=== PATIENT | female | born 1985 | race Caucasian/White ===

== ENCOUNTER 2019-07-05 10:43 | Emergency (ER) | payer BC ==
[~2019-07-05] VITALS: Ht 162.6 cm; Wt 68.2 kg
[2019-07-05] MEDS ORDERED: cefTRIAXone IV Push 1 GM VIAL. IVP STA (11:02)
[2019-07-05] MEDS ORDERED: MORPHINE SULFATE 10 MG/ML VIAL. IV STA (11:02)
--- NOTE | 2019-07-05 11:09 | PHYS DOC ---
Adult General Chief Complaint Chief Complaint: FLANK PAIN HPI HPI Patient is a 34 year old female who presents with left flank pain and fever that started 4-5 days ago. This morning when she woke up her temperature was 1 02.8F. The patient went to see an outpatient doctor and was prescribed Cipro and took one dose of it before arrival, she had an order for an outpatient CT scan but decided to check in the ER as she was not feeling well. She also had a dose of Toradol, unknown dosage. She rates her pain currently as 5 out of 10 in severity. The patient also has associated symptoms of nausea. She denies any medical history and states she does not have any allergies to any medicines. Review of Systems Review of Systems Constitutional: Reports fever or chills [] Eyes: Denies change in visual acuity, redness, or eye pain [] HENT: Denies nasal congestion or sore throat [] Respiratory: Denies cough or shortness of breath [] Cardiovascular: No additional information not addressed in HPI [] GI: Reports abdominal pain, nausea, denies vomiting, bloody stools or diarrhea [] : Denies dysuria or hematuria [] Musculoskeletal: Reports back pain. Integument: Denies rash or skin lesions [] Neurologic: Denies headache, focal weakness or sensory changes [] Endocrine: Denies polyuria or polydipsia [] Complete systems were reviewed and found to be within normal limits, except as documented in this note. Current Medications Current Medications Current Medications Medications (Trade) Dose Ordered Sig/Iris Start Time Stop Time Status Last Admin Dose Admin Ceftriaxone Sodium (Rocephin) 1 gm 1X STAT 07/05/19 11:02 07/05/19 11:41 DC 07/05/19 12:01 1 GM Morphine Sulfate (Morphine Sulfate) 5 mg 1X STAT 07/05/19 11:02 07/05/19 11:41 DC 07/05/19 12:02 5 MG Sodium Chloride 1,000 ml @ 1,000 mls/hr 1X ONCE 07/05/19 11:15 07/05/19 12:14 DC 07/05/19 12:02 1,000 MLS/HR Allergies Allergies Allergies Coded Allergies Type Severity Reaction Last Updated Verified No Known Drug Allergies 07/05/19 No Physical Exam Physical Exam Constitutional: Well developed, well nourished, no acute distress, non-toxic appearance. [] HENT: Normocephalic, atraumatic, bilateral external ears normal, oropharynx moist, no oral exudates, nose normal. [] Eyes: PERRLA, EOMI, conjunctiva normal, no discharge. [] Neck: Normal range of motion, no tenderness, supple, no stridor. [] Cardiovascular:Heart rate regular rhythm, no murmur [] Lungs & Thorax: Bilateral breath sounds clear to auscultation [] Abdomen: Bowel sounds normal, soft, LUQ tenderness, L flank tenderness, no masses, no pulsatile masses. [] Skin: Warm, dry, no erythema, no rash. [] Back: L CVA tenderness. [] Neurologic: Alert and oriented X 3, GCS 15, normal motor function, normal sensory function, no focal deficits noted. [] Current Patient Data Vital Signs Vital Signs Date Time Temp Pulse Resp B/P (MAP) Pulse Ox O2 Delivery O2 Flow Rate FiO2 07/05/19 12:02 98 Room Air 07/05/19 11:56 80 136/62 (86) 07/05/19 10:52 99.5 17 99.5 Lab Values Laboratory Tests Test 07/05/19 11:00 07/05/19 11:25 07/05/19 11:35 Urine Collection Type Void Urine Color Yellow Urine Clarity Cloudy Urine pH 6.5 Urine Specific [place] 1.020 Urine Protein 100 mg/dL (NEG-TRACE) Urine Glucose (UA) Negative mg/dL (NEG) Urine Ketones (Stick) 15 mg/dL (NEG) Urine Blood Small (NEG) Urine Nitrite Positive (NEG) Urine Bilirubin Negative (NEG) Urine Urobilinogen Dipstick 1.0 mg/dL (0.2 mg/dL) Urine Leukocyte Esterase Large (NEG) Urine RBC Field obscured /HPF (0-2) Urine WBC Tntc /HPF (0-4) Urine Squamous Epithelial Cells Occ /LPF Urine Bacteria Moderate /HPF (0-FEW) White Blood Count 10.7 x10^3/uL (4.0-11.0) Red Blood Count 3.78 x10^6/uL (3.50-5.40) Hemoglobin 12.7 g/dL (12.0-15.5) Hematocrit 36.3 % (36.0-47.0) Mean Corpuscular Volume 96 fL (79-100) Mean Corpuscular Hemoglobin 34 pg (25-35) Mean Corpuscular Hemoglobin Concent 35 g/dL (31-37) Red Cell Distribution Width 12.5 % (11.5-14.5) Platelet Count 193 x10^3/uL (140-400) Neutrophils (%) (Auto) 89 % (31-73) H Lymphocytes (%) (Auto) 5 % (24-48) L Monocytes (%) (Auto) 6 % (0-9) Eosinophils (%) (Auto) 0 % (0-3) Basophils (%) (Auto) 0 % (0-3) Neutrophils # (Auto) 9.5 x10^3/uL (1.8-7.7) H Lymphocytes # (Auto) 0.5 x10^3/uL (1.0-4.8) L Monocytes # (Auto) 0.6 x10^3/uL (0.0-1.1) Eosinophils # (Auto) 0.0 x10^3/uL (0.0-0.7) Basophils # (Auto) 0.0 x10^3/uL (0.0-0.2) Sodium Level 141 mmol/L (136-145) Potassium Level 3.6 mmol/L (3.5-5.1) Chloride Level 104 mmol/L (98-107) Carbon Dioxide Level 22 mmol/L (21-32) Anion Gap 15 (6-14) H Blood Urea Nitrogen 9 mg/dL (7-20) Creatinine 0.7 mg/dL (0.6-1.0) Estimated GFR (Cockcroft-Gault) 95.2 BUN/Creatinine Ratio 13 (6-20) Glucose Level 91 mg/dL (70-99) Lactic Acid Level 0.9 mmol/L (0.4-2.0) Calcium Level 8.6 mg/dL (8.5-10.1) Magnesium Level 1.7 mg/dL (1.8-2.4) L Total Bilirubin 0.8 mg/dL (0.2-1.0) Aspartate Amino Transferase (AST) 11 U/L (15-37) L Alanine Aminotransferase (ALT) 16 U/L (14-59) Alkaline Phosphatase 84 U/L (46-116) Total Protein 6.6 g/dL (6.4-8.2) Albumin 3.8 g/dL (3.4-5.0) Albumin/Globulin Ratio 1.4 (1.0-1.7) Lipase 88 U/L (73-393) POC Urine HCG, Qualitative Hcg negative (Negative) Laboratory Tests 07/05/19 11:25 Laboratory Tests 07/05/19 11:25 EKG EKG EKG interpreted by Dr. Germaine Mari with rate of 79. Radiology/Procedures Radiology/Procedures [][facility] [address] [place] [address] IMAGING REPORT Signed PATIENT: ELLE LOCKE ACCOUNT: [id number] : 1985 LOCATION: ER AGE: 34 SEX: F EXAM STATUS: REG ER ORD. PHYSICIAN: MELVIN ARZATE APRN REASON: L Flank Pain PROCEDURE: CT ABDOMEN PELVIS WO CONTRAST CT ABDOMEN PELVIS WO CONTRAST History: Left flank pain. Technique: Noncontrast examination of the abdomen and pelvis. Coronal and sagittal reconstructions were performed. Exposure: One or more of the following individualized dose reduction techniques were utilized for this examination: 1. Automated exposure control 2. Adjustment of the mA and/or kV according to patient size 3. Use of iterative reconstruction technique. Comparison: None Findings: Lower chest: No consolidation or pleural effusion. Abdomen and pelvis: The liver, spleen, adrenal glands, pancreas and gallbladder are unremarkable. Mild left pelvocaliectasis. Left perinephric and periureteral fat stranding. Left distal ureteral evaluation is degraded due to adjacent structures and decompressed urinary bladder. Possible left distal ureteral 2 mm calculus. Multiple left-sided phleboliths. Punctate nonobstructing right renal calculus. No right hydronephrosis. Normal appendix. No evidence of bowel obstruction. No pathologic lymphadenopathy. No ascites. Otherwise pelvic contents are unremarkable. Bones: No pathologic osseous lesions. Impression: 1. Mild left pelvocaliectasis with perinephric/periureteral fat stranding. Possible left distal ureteral 2 mm calculus although evaluation is degraded. Recommend correlation for infection. Electronically signed by: Deepak Ventura DO (07/05/2019 12:29 PM) [id number] Course & Med Decision Making Course & Med Decision Making Pertinent Labs and Imaging studies reviewed. (See chart for details) Will get labs, UA, CT scan, test and give supportive care. Will also go ahead and give 1 G of Rocephin. Urine shows positive nitrate, small blood, and moderate leukocytes. Labs are unremarkable. Impression: 1. Mild left pelvocaliectasis with perinephric/periureteral fat stranding. Possible left distal ureteral 2 mm calculus although evaluation is degraded. Recommend correlation for infection. Electronically signed by: Deepak Ventura DO (07/05/2019 12:29 PM) [id number] Discussed with the patient that she has an infected kidney stone and I recommend admission at a hospital that has a urologist. The patient does not want be admitted that she does not want to miss work. The patient asked if she could try to get better outpatient. The patient although I recommend admission to the hospital if she does not want to be admitted I will try to prescribe her antibiotics, nausea medicine, pain medicine and see if she gets better outpatient. The patient has follow-up with a urologist and will follow-up in a week. The patient agreed to come back to the hospital if this gets worse to be admitted. Dragon Disclaimer Dragon Disclaimer This electronic medical record was generated, in whole or in part, using a voice recognition dictation system. Departure Departure Impression: Primary Impression: Pelvicaliectasis Additional Impressions: Left nephrolithiasis Pyelonephritis Disposition: 01 HOME, SELF-CARE Condition: STABLE Referrals: NO PCP (PCP) Patient Instructions: Kidney Stones, Pyelonephritis, Adult Additional Instructions: Thank you for visiting [facility]. We appreciate you trusting us with your care. If any additional problems come up don't hesitate to return to visit us. Please follow up with your primary care provider so they can plan additional care if needed and know about the problem that you had. If symptoms worsen come back to the Emergency Department. Any concerning symptoms that start such as chest pain, shortness of air, weakness or numbness on one side of the body, running high fevers or any other concerning symptoms return to the ER. You have been prescribed an antibiotic today to help fight your infection. Please take all of the antibiotic as directed. If after 48 hours the infection is not improving, please return for more care. If the infection worsens, return to ER for additional care. Please return to the hospital if this gets worse or is not improving. Scripts Ondansetron (ONDANSETRON ODT) 4 Mg Tab.rapdis 1 TAB PO PRN Q6-8HRS PRN for NAUSEA, #20 TAB Prov: MELVIN ARZATE APRN 07/05/19 Hydrocodone/Apap 5-325 (NORCO 5-325 TABLET) 1 Each Tablet 1 TAB PO PRN Q6HRS PRN for PAIN for 3 Days, #10 TAB 0 Refills Prov: MELVIN ARZATE APRN 07/05/19 Cephalexin (KEFLEX) 500 Mg Capsule 1 CAP PO QID for 14 Days, #56 CAP 0 Refills Prov: MELVIN ARZATE APRN 07/05/19 Problem Qualifiers MELVIN ARZATE APRN Jul 05, 2019 11:09
[2019-07-05] MEDS ORDERED: IV NORMAL SALINE 1000ML BAG 1,000 ML IV ONE (11:15)
[2019-07-05 11:42] LABS: BASO % 0 % (0-3); EOS % 0 % (0-3); HEMATOCRIT 36.3 % (36.0-47.0); HEMOGLOBIN 12.7 g/dL (12.0-15.5); LYMPH # 0.5 x10^3/uL (1.0-4.8); LYMPH % 5 % (24-48); MEAN CORPUSCULAR HEMOGLOBIN 34 pg (25-35); MEAN CORPUSCULAR HGB CONC 35 g/dL (31-37); MEAN CORPUSCULAR VOLUME 96 fL (79-100); MONO # 0.6 x10^3/uL (0.0-1.1); MONO % 6 % (0-9); NEUT # 9.5 x10^3/uL (1.8-7.7); NEUT % 89 % (31-73); PLATELET COUNT 193 x10^3/uL (140-400); RED BLOOD COUNT 3.78 x10^6/uL (3.50-5.40); RED CELL DISTRIBUTION WIDTH 12.5 % (11.5-14.5); WHITE BLOOD COUNT 10.7 x10^3/uL (4.0-11.0)
[2019-07-05 11:44] LABS: BILIRUBIN,URINE NEGATIVE (NEG); CLARITY,URINE CLOUDY; COLOR,URINE YELLOW; NITRITE,URINE POSITIVE (NEG); PH,URINE 6.5; PROTEIN,URINE 100 mg/dL (NEG-TRACE)
[2019-07-05 11:58] LABS: CALCIUM 8.6 mg/dL (8.5-10.1); CREATININE 0.7 mg/dL (0.6-1.0); GFR 95.2; POTASSIUM 3.6 mmol/L (3.5-5.1)
[2019-07-05 12:04] LABS: ALBUMIN 3.8 g/dL (3.4-5.0); ALBUMIN/GLOBULIN RATIO 1.4 (1.0-1.7); MAGNESIUM 1.7 mg/dL (1.8-2.4); TOTAL BILIRUBIN 0.8 mg/dL (0.2-1.0); TOTAL PROTEIN 6.6 g/dL (6.4-8.2)
[2019-07-05 12:07] LABS: BACTERIA,URINE MODERATE /HPF (0-FEW); SQUAMOUS EPITHELIAL CELL,UR OCC /LPF; WBC,URINE TNTC /HPF (0-4)
[2019-07-05 12:08] LABS: RBC,URINE FIELD OBSCURED /HPF (0-2)
--- NOTE | 2019-07-05 12:27 | EKG ---
[facility] [address] [place] [address] Test Date: 2019-07-05 Test Time: 11:46:31 Pat Name: ELLE LOCKE Department: Room: Gender: F Director Of Rooms: : 1985 Requested By: MELVIN ARZATE Order Number: [id number] Reading MD: Measurements Intervals Odell Rate: 79 P: 42 OK: 148 QRS: 28 QRSD: 76 T: 4 QT: 338 QTc: 393 Interpretive Statements SINUS RHYTHM QRS(T) CONTOUR ABNORMALITY CONSISTENT WITH ANTEROSEPTAL INFARCT AGE UNDETERMINED ABNORMAL ECG No previous ECG available for comparison
--- NOTE | 2019-07-05 12:32 | RAD ---
CT ABDOMEN PELVIS WO CONTRAST History: Left flank pain. Technique: Noncontrast examination of the abdomen and pelvis. Coronal and sagittal reconstructions were performed. Exposure: One or more of the following individualized dose reduction techniques were utilized for this examination: 1. Automated exposure control 2. Adjustment of the mA and/or kV according to patient size 3. Use of iterative reconstruction technique. Comparison: None Findings: Lower chest: No consolidation or pleural effusion. Abdomen and pelvis: The liver, spleen, adrenal glands, pancreas and gallbladder are unremarkable. Mild left pelvocaliectasis. Left perinephric and periureteral fat stranding. Left distal ureteral evaluation is degraded due to adjacent structures and decompressed urinary bladder. Possible left distal ureteral 2 mm calculus. Multiple left-sided phleboliths. Punctate nonobstructing right renal calculus. No right hydronephrosis. Normal appendix. No evidence of bowel obstruction. No pathologic lymphadenopathy. No ascites. Otherwise pelvic contents are unremarkable. Bones: No pathologic osseous lesions. Impression: 1. Mild left pelvocaliectasis with perinephric/periureteral fat stranding. Possible left distal ureteral 2 mm calculus although evaluation is degraded. Recommend correlation for infection. Electronically signed by: Deepak Ventura DO (07/05/2019 12:29 PM) [id number]
[2019-07-05 13:26] VITALS: BP 131/69
[2019-07-05] MEDS ORDERED: ONDA4TAB12 PO (13:40)
[2019-07-05] MEDS ORDERED: CEPH-264 PO (13:40)
[2019-07-05] MEDS ORDERED: HYDR-3164 PO (13:40)
== END 2019-07-05 14:02 | disposition home or self-care (01) ==
LOC: ER 10:43
DX: N13.2 Hydronephrosis with renal and ureteral calculous obstruction (principal); N10 Acute pyelonephritis; R10.12 Left upper quadrant pain; R50.9 Fever, unspecified; R11.0 Nausea
CPT/HCPCS: 36415; 74176; 80053; 81001; 81025; 83605; 83690; 83735; 85025; 87040; 87086; 93005; 96374; 96375; 99285; J0696; J2270; J7030

== ENCOUNTER 2021-05-12 22:50 | Emergency (ER) | payer BC ==
[~2021-05-12] VITALS: Ht 160 cm; Wt 63.5 kg
[~2021-05-12 22:50] MED LIST: CEPH-264 PO; HYDR-3164 PO; ONDA4TAB12 PO
--- NOTE | 2021-05-13 00:42 | PHYS DOC ---
Past Medical History Past Medical History: No Pertinent History Past Surgical History: No Surgical History Smoking Status: Never Smoker Alcohol Use: Occasionally General Adult EDM: Chief Complaint: ABDOMINAL PAIN HPI: HPI: Patient is a 35 year old female who presents with nausea and vomiting, right- sided flank pain, radiating down to her right lower quadrant. She was diagnosed with a gallstone a few weeks ago, as she had an outpatient ultrasound at [facility]. The ultrasound was reportedly ordered by her pharmacy innovation assistant, and she had outpatient labs, the results of which she does not know. Her pharmacy innovation assistant and referred her to see Dr. Gonzales, with whom she has an appointment later today. She ate [employer] for dinner. She reports that she was not counseled on any dietary modifications or what to do about gallstones in general. She reports that last night she developed a fever of 100.1. She took ibuprofen several hours ago. She has not taken any Tylenol today. She has not been taking any prescription medications for pain or nausea at home. She denies constipation or diarrhea. She denies any hematuria, she reports mild urinary urgency but denies dysuria. She denies pelvic pain, vaginal discharge or bleeding. She reports she has "no idea" when her last menstrual period was. She is taking control. She has had previous C-sections. No other abdominal surgeries reported. Review of Systems: Review of Systems: Constitutional: Fever began tonight. Denies chills or myalgias. Eyes: Denies change in visual acuity. [] HENT: Denies nasal congestion or sore throat. [] Respiratory: Denies cough or shortness of breath. [] Cardiovascular: Denies chest pain or edema. [] GI: Right upper quadrant abdominal pain, right flank pain, nausea and vomiting. Denies constipation or diarrhea, denies melena or hematochezia. : Denies dysuria or gross hematuria. Reports urinary urgency. Denies pelvic pain, vaginal discharge or bleeding Musculoskeletal: Right flank pain, rating from her right abdomen, denies low back pain, denies joint pain or swelling Integument: Denies rash. [] Neurologic: Denies headache, focal weakness or sensory changes. [] Psychiatric: Denies depression or anxiety. [] Heart Score: C/O Chest Pain: No Risk Factors: Risk Factors: DM, Current or recent (<one month) smoker, HTN, HLP, family history of CAD, obesity. Risk Scores: Score 0 - 3: 2.5% MACE over next 6 weeks - Discharge Home Score 4 - 6: 20.3% MACE over next 6 weeks - Admit for Clinical Observation Score 7 - 10: 72.7% MACE over next 6 weeks - Early Invasive Strategies Allergies: Allergies: Allergies Coded Allergies Type Severity Reaction Last Updated Verified No Known Drug Allergies 07/05/19 No Physical Exam: PE: Constitutional: Well developed, well nourished, no acute distress, non-toxic appearance. [] HENT: Normocephalic, atraumatic Eyes: Sclera are clear and anicteric Neck: Normal range of motion, no tenderness, supple, no stridor. [] Cardiovascular:Heart rate regular rhythm, +2 radial and +2 dorsalis pedis pulses Lungs & Thorax: Bilateral breath sounds clear to auscultation [] Abdomen: Abdomen is soft, nondistended, minimal right upper quadrant tenderness, no guarding, no rebound, negative Torrez's, mild right CVA tenderness, no flank or abdominal ecchymoses. Mild right mid and right lower quadrant abdominal tenderness, no rebound, no guarding. No palpable masses organomegaly. Skin: Warm, dry, no erythema, no rash. No jaundice. Back: No tenderness, no CVA tenderness. [] Extremities: No tenderness, no cyanosis, no clubbing, ROM intact, no edema. No calf tenderness. Neurologic: Alert and oriented X 3, normal motor function, normal sensory function, no focal deficits noted. [] Psychologic: Affect normal, judgement normal, mood normal. [] EKG: EKG: [] Radiology/Procedures: Radiology/Procedures: IMAGING REPORT Signed PATIENT: ELLE LOCKE ACCOUNT: [id number] : 1985 LOCATION: ER AGE: 35 SEX: F EXAM STATUS: REG ER ORD. PHYSICIAN: RONAL GOOD DO REASON: RUQ pain PROCEDURE: ABDOMEN LTD EXAM: ULTRASOUND ABDOMEN LIMITED CLINICAL HISTORY: RUQ pain COMPARISON: None available. TECHNIQUE: Limited ultrasound examination of the right upper quadrant of the abdomen was performed. FINDINGS: The head and body of the pancreas are unremarkable. The tail is obscured by intestinal gas.. Liver: 15.4 cm in length. The hepatic margin is smooth and the hepatic echogenicity is normal. There are no focal liver lesions. Flow seen within the portal veins. Biliary: A slight gallstones are seen within the gallbladder. No wall thickening or pericholecystic fluid. There is no pain with direct transducer pressure over the gallbladder. Common bile duct measures 0.5 cm. Right Kidney: 9.9 cm in bipolar length. Normal renal cortical echotexture and thickness. No focal renal lesion, shadowing renal calculus or hydronephrosis. Visualized portions of the abdominal aorta and inferior vena cava are unremarkable. There is no free fluid in the subhepatic space. IMPRESSION: Cholelithiasis without CT evidence for acute cholecystitis. Electronically signed by: Norm Mohan MD (05/13/2021 1:38 AM) [facility] [place] DICTATED and SIGNED BY: NORM MOHAN MD DATE: 05/13/21 [id number] IMAGING REPORT Signed PATIENT: ELLE LOCKE ACCOUNT: [id number] : 1985 LOCATION: ER AGE: 35 SEX: F EXAM STATUS: REG ER ORD. PHYSICIAN: RONAL GOOD DO REASON: RLQ pain, fever;OMNI 300, 75ML PROCEDURE: CT ABD PELV W/ IV CONTRST ONLY EXAM: CT Abdomen and Pelvis with IV contrast CLINICAL HISTORY: RLQ pain, fever COMPARISON: none TECHNIQUE: Helical CT of the abdomen and pelvis was performed following the administration of intravenous contrast. Axial, coronal and sagittal reformatted images were generated. PQRS compliance statement - One or more of the following individualized dose reduction techniques were utilized for this study: 1. Automated exposure control 2. Adjustment of the mA and/or kV according to patient size 3. Use of iterative reconstruction technique FINDINGS: Lower Chest: Lung bases are clear. Abdomen and Pelvis: Liver, spleen, adrenal glands, and pancreas are unremarkable. Gallstones are seen within the gallbladder. Symmetric nephrograms. Subcentimeter hypodense right lower pole renal lesion too small to accurately characterize. No hydronephrosis. Bladder is unremarkable. Moderate colonic stool content is seen. No small or large bowel dilatation. No bowel obstruction. No pericecal infiltration. Appendix is likely retroflexed although not well seen. No abdominal or pelvic ascites. Uterus and adnexa unremarkable. No abdominal or pelvic lymphadenopathy. Bones: No aggressive osseous lesion. IMPRESSION: 1. Moderate colonic stool content is seen. No bowel obstruction. 2. Gallstone is seen within the gallbladder. No CT evidence for acute cholecystitis. 3. Appendix is is not well seen, possibly retroflexed but the suspected appe ndix is normal in appearance. Electronically signed by: Norm Mohan MD (05/13/2021 3:19 AM) [facility] [place] DICTATED and SIGNED BY: NORM MOHAN MD DATE: 05/13/21 [id number] Course & Med Decision Making: Course & Med Decision Making Pertinent Labs and Imaging studies reviewed. (See chart for details) The patient is given IV fluids, IV Zofran, IV morphine. She is resting comfortably. IV Toradol given for further pain control and for fever. She has a large gallstone, no evidence of cholecystitis. She has findings of urinary tract infection and pyelonephritis. She is given a dose of IV Rocephin. She is able to tolerate p.o. fluids well, no further nausea or vomiting symptoms. I have discussed all of the findings, differential diagnosis and plan of care with the patient. I told her that she should continue to follow-up with her primary care physician as well as outpatient surgery, as scheduled. Given that she has a systemic infection, with her urinary tract infection, she will not be able to have surgery until this is resolved. I did explain that there is no emergent indication for admission at this time, there is no indication for emergent surgical intervention based on her current clinical presentation either. I did discuss, in detail, dietary modification techniques and home care instructions. She is amenable to taking prescriptions for pain medication and antiemetics. These are provided to her. Strict return precautions are given. She understands that if her urine culture indicates any need to change antibiotics, she should be notified within about 48 hours. She is comfortable with the plan for discharge, discharged in stable condition. [place] Disclaimer: Robert Disclaimer: This electronic medical record was generated, in whole or in part, using a voice recognition dictation system. Departure Departure Impression: Primary Impression: Acute pyelonephritis Additional Impression: Symptomatic cholelithiasis Disposition: HOME / SELF CARE / HOMELESS Condition: STABLE Referrals: KYM BHANDARI (PCP) Patient Instructions: Biliary Colic, Pyelonephritis, Adult Additional Instructions: Please eat a low-fat, bland diet. This will hopefully prevent serious gallbladder attacks from occurring. Take the full course of antibiotics for your kidney infection. Use the pain medicine and nausea medicine as needed/as directed. Make sure you stay well-hydrated, drink plenty of fluids. Return to the ER for uncontrolled vomiting, dehydration, more severe uncontrolled pain, if you develop any jaundice (yellow eyes, yellow skin), or for any other concerns. Please keep your scheduled follow-up appointment with the general surgeon, you will need to wait until your kidney infection resolves before proceeding with any surgery. If there is any need to change your antibiotics based on your urine culture results, you should be notified. Please contact your primary care doctor for follow-up as well. Scripts Cefdinir (CEFDINIR) 300 Mg Capsule 1 CAP PO BID for 10 Days, #20 CAP Prov: RONAL GOOD DO 05/13/21 Ondansetron Hcl (ONDANSETRON HCL) 4 Mg Tablet 1 TAB PO PRN Q6HRS for vomiting, #20 TAB 1 Refill Prov: LATISHARONAL Roth DO 05/13/21 Hydrocodone Bit/Acetaminophen (HYDROCODONE-APAP 5-325 ) 1 Tab Tablet 1 TAB PO PRN Q6HRS PRN for PAIN, #20 TAB 0 Refills Prov: RONAL GOOD DO 05/13/21 RONAL GOOD DO May 13, 2021 00:42
[2021-05-13 01:09] LABS: BASO % 0 % (0-3); EOS # 0.1 x10^3/uL (0.0-0.7); EOS % 1 % (0-3); HEMATOCRIT 38.1 % (36.0-47.0); HEMOGLOBIN 13.2 g/dL (12.0-15.5); LYMPH # 0.7 x10^3/uL (1.0-4.8); LYMPH % 6 % (24-48); MEAN CORPUSCULAR HEMOGLOBIN 33 pg (25-35); MEAN CORPUSCULAR HGB CONC 35 g/dL (31-37); MEAN CORPUSCULAR VOLUME 97 fL (79-100); MONO # 0.5 x10^3/uL (0.0-1.1); MONO % 5 % (0-9); NEUT # 9.9 x10^3/uL (1.8-7.7); NEUT % 88 % (31-73); PLATELET COUNT 243 x10^3/uL (140-400); RED BLOOD COUNT 3.94 x10^6/uL (3.50-5.40); WHITE BLOOD COUNT 11.2 x10^3/uL (4.0-11.0)
[2021-05-13 01:25] LABS: PREG TEST PT QUAL NEGATIVE (NEG)
[2021-05-13 01:36] LABS: CALCIUM 8.4 mg/dL (8.5-10.1); CREATININE 0.7 mg/dL (0.6-1.0); GFR 94.7; POTASSIUM 3.6 mmol/L (3.5-5.1)
[2021-05-13] MEDS: IV NORMAL SALINE 1000ML BAG 1,000 ML IV ONE (01:36)
[2021-05-13] MEDS: KETOROLAC 30 MG/ML VIAL. IVP ONE (01:37)
[2021-05-13] MEDS: ONDANSETRON PF 4 MG/2 ML VIAL. IVP ONE (01:37)
[2021-05-13] MEDS: MORPHINE SULFATE 4 MG/ML INJ. IVP ONE (01:37)
[2021-05-13 01:40] LABS: ALBUMIN 3.5 g/dL (3.4-5.0); ALBUMIN/GLOBULIN RATIO 0.9 (1.0-1.7); TOTAL BILIRUBIN 0.5 mg/dL (0.2-1.0); TOTAL PROTEIN 7.4 g/dL (6.4-8.2)
--- NOTE | 2021-05-13 01:40 | RAD ---
EXAM: ULTRASOUND ABDOMEN LIMITED CLINICAL HISTORY: RUQ pain COMPARISON: None available. TECHNIQUE: Limited ultrasound examination of the right upper quadrant of the abdomen was performed. FINDINGS: The head and body of the pancreas are unremarkable. The tail is obscured by intestinal gas.. Liver: 15.4 cm in length. The hepatic margin is smooth and the hepatic echogenicity is normal. The re are no focal liver lesions. Flow seen within the portal veins. Biliary: A slight gallstones are seen within the gallbladder. No wall thickening or pericholecystic fluid. There is no pain with direct transducer pressure over the gallbladder. Common bile duct measures 0.5 cm. Right Kidney: 9.9 cm in bipolar length. Normal renal cortical echotexture and thickness. No focal dany al lesion, shadowing renal calculus or hydronephrosis. Visualized portions of the abdominal aorta and inferior vena cava are unremarkable. There is no free fluid in the subhepatic space. IMPRESSION: Cholelithiasis without CT evidence for acute cholecystitis. Electronically signed by: Norm Bass MD (05/13/2021 1:38 AM) [facility]
[2021-05-13 01:57] LABS: BILIRUBIN,URINE NEGATIVE (NEG); CLARITY,URINE CLOUDY; COLOR,URINE YELLOW; NITRITE,URINE POSITIVE (NEG); PROTEIN,URINE 100 mg/dL (NEG-TRACE)
[2021-05-13 02:09] LABS: BACTERIA,URINE MANY /HPF (0-FEW); WBC,URINE TNTC /HPF (0-4)
[2021-05-13] MEDS ORDERED: CONTRAST GIVEN. MC PRN (02:45)
[2021-05-13] MEDS: IOHEXOL 300 MG/ML 100ML VIAL. IV ONE (02:57)
[2021-05-13] MEDS: cefTRIAXone IV Push 1 GM VIAL. IVP ONE (03:21)
--- NOTE | 2021-05-13 03:21 | RAD ---
EXAM: CT Abdomen and Pelvis with IV contrast CLINICAL HISTORY: RLQ pain, fever COMPARISON: none TECHNIQUE: Helical CT of the abdomen and pelvis was performed following the administration of intrave nous contrast. Axial, coronal and sagittal reformatted images were generated. PQRS compliance statement - One or more of the following individualized dose reduction techniques wer e utilized for this study: 1. Automated exposure control 2. Adjustment of the mA and/or kV according to patient size 3. Use of iterative reconstruction technique FINDINGS: Lower Chest: Lung bases are clear. Abdomen and Pelvis: Liver, spleen, adrenal glands, and pancreas are unremarkable. Gallstones are seen within the gallblad irais. Symmetric nephrograms. Subcentimeter hypodense right lower pole renal lesion too small to accurately characterize. No hydronephrosis. Bladder is unremarkable. Moderate colonic stool content is seen. No small or large bowel dilatation. No bowel obstruction. No pericecal infiltration. Appendix is likely retroflexed although not well seen. No abdominal or pelvic ascites. Uterus and adnexa unremarkable. No abdominal or pelvic lymphadenopath y. Bones: No aggressive osseous lesion. IMPRESSION: 1. Moderate colonic stool content is seen. No bowel obstruction. 2. Gallstone is seen within the gallbladder. No CT evidence for acute cholecystitis. 3. Appendix is is not well seen, possibly retroflexed but the suspected appendix is normal in appear ance. Electronically signed by: Norm Bass MD (05/13/2021 3:19 AM) SAMANTHA
[2021-05-13] MEDS ORDERED: ONDA-84 PO (04:22)
[2021-05-13] MEDS ORDERED: HYDR-2761 PO (04:22)
[2021-05-13] MEDS ORDERED: CEFD300C PO (04:22)
[2021-05-13 05:00] VITALS: BP 123/59
[2021-05-16] MEDS ORDERED: NORE-90 PO (16:02)
[2021-05-16] MEDS ORDERED: IBUP-1007 PO (16:02)
== END 2021-05-13 05:21 | disposition home or self-care (01) ==
LOC: ER 22:50
DX: N10 Acute pyelonephritis (principal); K80.20 Calculus of gallbladder without cholecystitis without obstruction
CPT/HCPCS: 36415; 74177; 76705; 80053; 81001; 81025; 83690; 84703; 85025; 87086; 96361; 96374; 96375; 99285; J0696; J1885; J2270; J2405; J7030; Q9967; 87077; 87186

== ENCOUNTER 2021-05-19 09:18 | Day surgery (SDC) | payer BC ==
[~2021-05-19] VITALS: Ht 160 cm; Wt 64.0 kg
[~2021-05-19 09:18] MED LIST changes: +BUPIVACAINE MPF 0.5% 30 ML VIAL. ONE; +CEFD300C PO; +DEXAMETHASONE SOD PHOS 4 MG/ML VIAL ONE; +FAMOTIDINE 20 MG/2 ML VIAL ONE; +HYDR-2761 PO; +HYDROmorphone 2 MG/ML INJ. IVP PRN; +IBUP-1007 PO; +IOHEXOL 300 MG/ML 50 ML VIAL. ONE; +IV RINGERS,LACTATED 1000ML 1,000 ML IV SCH; +LIDOCAINE 2% PF 5 ML VIAL. ONE; +MIDAZOLAM HCL/PF 2 MG/2 ML VIAL. ONE; +MORPHINE SULFATE 2 MG/ML INJ. IVP PRN; +NORE-90 PO; +ONDA-84 PO; +ONDANSETRON PF 4 MG/2 ML VIAL. ONE; +PROCHLORPERAZINE 10 MG/2 ML VIAL. IVP PRN; +PROPOFOL 10 MG/ML (20ML) VIAL. IV ONE; +ROCURONIUM 50 MG/5 ML VIAL. ONE; +SURGICEL HEMOSTAT 4X8 EACH. ONE; +ceFAZolin SODIUM IV Push 1 GM VIAL. IVP PRN; +fentaNYL PF VIAL 100 MCG/2 ML VIAL IVP PRN; +fentaNYL PF VIAL 100 MCG/2 ML VIAL ONE
[2021-05-19] MEDS ORDERED: BUPIVACAINE-EPI 0.5% 30 ML VIAL KIT. ONE ×2 (09:41→09:47)
[2021-05-19 09:44] VITALS: BP 145/76
[2021-05-19] MEDS ORDERED: KETOROLAC 30 MG/ML VIAL. ONE (10:48)
[2021-05-19] MEDS ORDERED: NEOSTIGMINE METHYLSULFATE 5 MG/5 ML SYRINGE. ONE (10:52)
[2021-05-19] MEDS ORDERED: GLYCOPYRROLATE 1 MG/5 ML VIAL. ONE (10:52)
--- NOTE | 2021-05-19 11:04 | RAD ---
EXAM: Intraoperative cholangiogram. HISTORY: Cholecystectomy. Pain. COMPARISON: None. FINDINGS: 2 fluoroscopic images were obtained during an intraoperative cholangiogram. The total fluor oscopy time is 9 seconds. The images demonstrate contrast opacification of the downstream biliary david e and proximal duodenum. There is no evidence of a retained stone. IMPRESSION: No evidence of a retained biliary stone. Electronically signed by: Val Calzada MD (05/19/2021 11:02 AM) [id number]
--- NOTE | 2021-05-19 11:23 | PDOC4 ---
Operative Note Operative Note Operative Note: Preoperative Diagnosis: Calculus cholecystitis Postoperative Diagnosis: Same Procedure: Laparoscopic cholecystectomy with intraoperative cholangiogram Surgeons: George Drill Rig Operator Helper: KHUSHI Dawn, Niko Deluna MS 3 Anesthesia: Gen. Estimated Blood Loss: 10 mL Specimen: Gallbladder to pathology Drains: None Complications: None Indications: The patient is a 35-year-old female who is referred with calculus cholecystitis. Surgical treatment was offered by means of a laparoscopic cholecystectomy. The risks of surgery were discussed which include bleeding, infection, bile duct injury, bile leak, pain, the potential for additional surgeries or procedures. The patient understands and would like to proceed. Description: The patient was taken to the operating room and laid supine on the operating table. General anesthesia was performed. The abdomen was prepped with ChloraPrep and draped in a standard surgical fashion. A small infraumbilical incision was made with a scalpel. The Veress needle was then inserted and a pneumoperitoneum was then created. A 5 mm trocar was then inserted and the laparoscope was introduced. In the upper midabdomen a 5 mm trocar was inserted and in the right upper quadrant two 2.3 mm mini lap graspers were inserted. The gallbladder was retracted cephalad. The cystic duct was dissected free from surrounding tissues. One clip was placed on the duct near the gallbladder junction. An opening was made in the duct and a cholangiocatheter placed within and secured with a clip. Using contrast dye and fluoroscopy an intraoperative cholangiogram was performed that appeared unremarkable. The clip and catheter were then withdrawn. Three clips were placed on the cystic duct and it was divided. The cystic artery was then identified, dissected free, doubly clipped and divided as well. The gallbladder was then mobilized away from the liver with cautery. The umbilical 5 millimeter trocar was exchanged for an 11 millimeter trocar. The gallbladder was then placed in an endoscopic bag and extracted at the umbilical trocar site. The fascia there was closed with 0 Vicryl sutures and infiltrated with 0.5% marcaine. All blood and irrigation fluid was suctioned and hemostasis was good. The remaining ports were removed and the pneumoperitoneum was relieved. The skin incisions were closed using 4-0 Monocryl suture. Steri-Strips and dressings were then applied. The patient tolerated the procedure well and was sent to the recovery room in stable condition. At the end of the case all counts were correct. JONN MUNIZ MD May 19, 2021 11:23
[2021-05-19] MEDS ORDERED: OXYC-325 PO (11:26)
--- NOTE | 2021-05-19 11:30 | DISCH ---
DISCHARGE INSTRUCTIONS Condition on Discharge Condition on Discharge: Stable Activity After Discharge Activity Instructions for Disc: Other, see below (No lifting over 20 lbs X 2 weeks, no driving while taking pain meds) Diet after Discharge Diet after Discharge: Regular Wound Incision Care Wound/Incision Care: Other, see below (may remove bandaids tomorrow and shower, steristrips may fall off on their own) Follow-Up Follow up with: Dr Muniz in 2 weeks in office, call for appointment [phone] JONN MUNIZ MD May 19, 2021 11:30
[2021-05-19] MEDS ORDERED: oxyCODONE/APAP 5/325 1 TAB TABLET PO ONE (12:00)
[2021-05-19 12:40] VITALS: BP 119/67
--- NOTE | 2021-05-21 16:10 | PATHOLOGY ---
[facility] Accession Number: [id number] . 01 Material submitted: . gallbladder - GALLBLADDER AND CONTENTS . 01 Clinical history: . CHOLELITHIASIS LAP MORIS WITH GRAMS . 02 Diagnosis: Gallbladder, laparoscopic cholecystectomy: - Cholelithiasis. - Chronic cholecystitis. (NYDIA:braydon; 05/21/2021) R 05/21/2021 1055 Local . 02 Comment: There is no evidence of malignancy. (ASHAM:braydon; 05/21/2021) . 02 Electronically signed: . Austin Parra MD, Pathologist NPI- [id number] . 01 Gross description: . Fixative: Formalin Labeled: Gallbladder and contents Specimen received: Intact Dimensions: 8.5 x 2.8 x 2.8 cm Lymph node: None Serosa: Blue-green, smooth and unremarkable Calculi: A antonio bosselated cholelith (2.5 x 1.9 x 1.8 cm) Mucosa: Green, focally smooth and focally velvety without antonio stippling Average wall thickness: 0.2 cm Abnormalities: None A1: Gallbladder, represented ([facility]; 05/20/2021) DKA/DKA 05/20/2021 1143 Local . 02 Pathologist provided ICD-10: K80.10 . 02 CPT . 253150 Specimen Comment: A courtesy copy of this report has been sent to [phone] Specimen Comment: Report sent to Specimen Comment: A duplicate report has been generated due to demographic updates. Performed at: [facility] [address], [place], [place] [id number] MD Cam Cox MD Phone: [phone] Performed at: 02 [facility] [address] [place], [place] [id number] MD Austin Parra MD Phone: [phone]
== END 2021-05-19 13:20 | disposition home or self-care (01) ==
LOC: SURG 09:18
PROVIDERS: ATTEND Surgery
DX: K80.10 Calculus of gallbladder with chronic cholecystitis without obstruction (principal); F41.9 Anxiety disorder, unspecified; Z79.899 Other long term (current) drug therapy; Z72.89 Other problems related to lifestyle; Z98.890 Other specified postprocedural states
CPT/HCPCS: 47563; 74300; 81025; A4209; A4213; A4364; A4930; A6219; C1887; J0690; J1100; J1885; J2250; J2405; J2704; J2710; J3010; J3490; Q9967; A4452; A4657